=== PATIENT | male | born 1950 | race Caucasian/White ===

== ENCOUNTER 2017-08-07 04:26 | Inpatient (IN) | payer MEDICARE, BC ==
[2017-08-07] VITALS (7 sets, daily range): BP systolic 125–157; BP diastolic 74–94
[~2017-08-07] VITALS: Ht 182.9 cm; Wt 99.6 kg
--- NOTE | ~2017-08-07 | PROC ---
[facility] [address] [place] [address] PROCEDURE REPORT Name: ASYA RUBALCAVA Room: [address] IN M.R.#: [id number] Admission: 08/07/17 Attend Phys: Humphrey Calvert Discharge: 08/13/17 Date of : 46 Report #: [id number] THIS REPORT FOR: //name// For GI report, please see the Provation report in Perceptive 7 content. By: 0644Medical Records Staff KAMINI /JAMES
[2017-08-07 05:22] LABS: HEMATOCRIT 43.8 % (42.0-52.0); HEMOGLOBIN 14.7 gm/dL (14.0-18.0); MCHC 33.7 g/dL (28.0-37.0); MCV 98.1 fL (80.0-100.0); MPV 8.7 fl. (7.2-11.1); NUCLEATED RBCS 0 /100WBC; PLATELET COUNT* 130 thou/uL (150-400); RBC 4.46 mil/uL (4.50-6.00); RDW-CV 13.1 % (10.5-14.5); WBC 7.5 thou/uL (4.0-11.0)
[2017-08-07 05:26] LABS: URINE BILIRUBIN NEGATIVE (Negative); URINE BLOOD NEGATIVE (Negative); URINE CLARITY CLEAR; URINE COLOR YELLOW; URINE GLUCOSE-RANDOM NEGATIVE (Negative); URINE KETONES NEGATIVE (Negative); URINE LEUKOCYTES-REFLEX NEGATIVE (Negative); URINE NITRITE-REFLEX NEGATIVE (Negative); URINE PROTEIN TRACE (Negative); URINE UROBILINOGEN 0.2 E.U./dl (0.2-1.0)
[2017-08-07 05:52] LABS: CREATININE 1.6 mg/dL (0.6-1.3); POTASSIUM 4.3 mmol/L (3.5-5.1)
[2017-08-07 05:57] LABS: ALBUMIN 3.9 g/dL (3.4-5.0); TOTAL BILIRUBIN 0.9 mg/dL (<0.1-1.0); TOTAL PROTEIN 6.8 g/dL (6.4-8.2)
[2017-08-07 06:17] LABS: ABSOLUTE LYMPHOCYTES 1.1 thou/uL (0.8-5.3); ABSOLUTE MONOCYTES 0.2 thou/uL (0.0-1.2); ABSOLUTE NEUTROPHILS 6.2 thou/uL (1.6-8.1); PLATELET ESTIMATE ADEQUATE
[2017-08-07] MEDS ORDERED: DIFLUCAN200 MG PO (09:46)
[2017-08-07] MEDS ORDERED: KETOCONAZOLE15 GM TOP (09:47)
[2017-08-07] MEDS ORDERED: MAXITROL EYE DRO5 ML OPHTHALMIC (09:49)
--- NOTE | 2017-08-07 11:53 | NUR ---
PT ADMITTED TO UNIT AROUND 0900 PT IS ALERT AND ORIENTED X 4 PT IS UP AD EDUARDA PT IS NOT A FALL RISK, PT C/O PAIN IN ABDOMEN AND NAUSEA STARTED FLUIDS AND GAVE ZOFRAN PAGED PHYSICIAN REGARDING PAIN MEDS AND FOR POSSIBLE DIET PT IS NPO FOR CARDIOLOGY AND NAUSEA PT WOULD LIKE TO EAT CRACKERS TO HAVE SOMETHING ON STOMACH PER PT CARDIOLOGY SAW PT AND IS RECOMMENDING GI CONSULT AND TO FOLLOW UP OUTPATIENT, PT IS AFIB ON THE MONITOR, WILL CONTINUE TO MONITOR
--- NOTE | 2017-08-07 12:26 | EKG ---
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 08/07/17 1226 9 9 Aryan Mederos MD, [facility] /EPI
--- NOTE | 2017-08-07 16:13 | NUR ---
CM SPOKE TO THE PATIENT TO DISCUSS HOME SITUATION, DISCHARGE PLANNING, AND TO INFORM OF THE ROLE OF CM. PATIENT ALERT, ORIENTED, AND INDEPENDENT WITH ADL'S. PATIENT ACTIVE AND INDEPENDENT. PATIENT RESIDES AT HOME ALONE. PATIENT OWNS 0 DME. PATIENT HAS NO HX OF HH OR SNF, AND PLANS TO RETURN HOME AT D/C. CM WILL REMAIN AVAILABLE TO ASSIST AND FOLLOW NEEDED.
[2017-08-08] VITALS: BP 118/79
--- NOTE | 2017-08-08 03:51 | NUR ---
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 PT IS ON RA SATTING MID TO HIGH 90'S. PT C/O SOME PAIN THIS SHIFT WELL A SLEEP AID. PRN MEDICATIONS GIVEN PER JUL. PT IS UP AD EDUARDA IN HIS ROOM AND APPEARS TO BE STABLE ON HIS FEET. PT SLEPT ON AND OFF THROUGHOUT THE SHIFT. BED IN LOW POSITION, CALL LIGHT IN REACH. HOUELY ROUNDING COMPLETED FOR PT SAFETY.
[2017-08-08 04:00] VITALS: BP 126/80
[2017-08-08 05:12] LABS: ABSOLUTE LYMPHOCYTES 0.5 thou/uL (0.8-5.3); ABSOLUTE MONOCYTES 0.3 thou/uL (0.0-1.2); ABSOLUTE NEUTROPHILS 6.1 thou/uL (1.6-8.1); BASOPHILS 0.2 %; EOSINOPHILS 0.2 %; HEMOGLOBIN 13.2 gm/dL (14.0-18.0); LYMPHOCYTES 7.6 %; MCH 33.2 pg (26.0-34.0); MCHC 33.7 g/dL (28.0-37.0); MCV 98.3 fL (80.0-100.0); MONOCYTES 4.8 %; MPV 9.2 fl. (7.2-11.1); NUCLEATED RBCS 0 /100WBC; PLATELET COUNT* 103 thou/uL (150-400); POLYS 87.2 %; RBC 3.97 mil/uL (4.50-6.00); RDW-CV 13.3 % (10.5-14.5)
[2017-08-08 05:35] LABS: ALBUMIN 3.2 g/dL (3.4-5.0); CALCIUM 8.2 mg/dL (8.5-10.1); CREATININE 1.8 mg/dL (0.6-1.3); MAGNESIUM 1.8 mg/dL (1.8-2.4); POTASSIUM 4.5 mmol/L (3.5-5.1); TOTAL PROTEIN 6.1 g/dL (6.4-8.2)
[2017-08-08 07:40] VITALS: BP 141/88
--- NOTE | 2017-08-08 08:31 | NUR ---
RECIEVED REPORT FROM ROHINI AND ASSUMED CARE OF PT @ 1906.PT IS A/O X4,VSS,LUNG SOUNDS ARE CLEAR WITH O2 SAT @ 96% ON ROOM AIR.TRACING AFIB ON MONITOR.PT STATES BM ON 08/05/17 AND WAS LOOSE.ABDOMEN SOFT WITH ACTIVE BOWEL SOUNDS. IV RIGHT AC WITH NS RUNNING AT 75ML/HR.PT IS CALM AND COOPERATIVE WITH C/O PAIN AT 4/10-MEDICATIONS GIVEN.PT IS UP AD EDUARDA IN THE ROOM WITH BRP.URINE OBSERVED IN URINAL LOOKED DARK,THICK,AND BLOODY. NEW URINAL PROVIDED TO OBTAIN URINE SAMPLE.WILL CONTINUE TO MONITOR.CALL LIGHT WITHIN REACH.
[2017-08-08 10:10] LABS: ICTOTEST (BILI CONFIRMATORY) Negative (Negative); URINE BILIRUBIN 1+ (Negative); URINE BLOOD 3+ (Negative); URINE CLARITY CLEAR; URINE COLOR BROWN; URINE GLUCOSE-RANDOM NEGATIVE (Negative); URINE KETONES NEGATIVE (Negative); URINE LEUKOCYTES-REFLEX NEGATIVE (Negative); URINE NITRITE-REFLEX NEGATIVE (Negative); URINE PROTEIN 2+ (Negative); URINE SPECIFIC GRAVITY >= 1.030 (1.005-1.030); URINE UROBILINOGEN 0.2 E.U./dl (0.2-1.0)
[2017-08-08 10:19] LABS: CASTS None Seen /LPF (None Seen); MUCUS >6 Heavy strn/LPF (None Seen); SQUAMOUS NONE SEEN /LPF (0-3); URINE RBC 0-2 Rare /HPF (0-2); URINE WBC-REFLEX 6-15 Few /HPF (0-5)
[2017-08-08 10:20] LABS: AMORPHOUS URATES Few /LPF (None Seen); BACTERIA-REFLEX 1-9 Few /HPF (None Seen); WBC CLUMPS Few (None Seen)
[2017-08-08 11:43] VITALS: BP 132/80
--- NOTE | 2017-08-08 13:01 | EKG ---
[place] [address] ELECTROCARDIOGRAM REPORT Name: ASYA RUBALCAVA Room: [address] ADM IN M.R.#: [id number] Admission: 08/07/17 Attend Phys: Humphrey Calvert Discharge: Date of : 46 Report #: [id number] THIS REPORT FOR: //name// [facility] Test Date: 2017-08-08 Test Time: 08:34:14 Pat Name: ASYA RUBALCAVA Department: Room: [facility] Gender: M Supervisor Baking: MELVIN : 1950 Requested By: Adriel Weiss Order Number: [id number] Reading MD: Aryan Mederos Measurements Intervals [place] Rate: 61 P: AL: QRS: 59 QRSD: 115 T: 22 QT: 439 QTc: 443 Interpretive Statements Atrial fibrillation Nonspecific intraventricular conduction delay Compared to ECG 08/07/2017 06:40:19 Intraventricular conduction delay now present Early repolarization no longer present Electronically Signed On 08-08-2017 13:01:35 CDT by Aryan Mederos [email or web address] <ELECTRONICALLY SIGNED> By: Aryan Mederos MD, [facility] 08/08/17 1301 0834 0834 Aryan Mederos MD, [facility] /EPI
[2017-08-08 15:35] VITALS: BP 147/86
--- NOTE | 2017-08-08 17:30 | NUR ---
VSS,CARDIAC MONITORING IN PLACE WITH NO CHANGES.PT REMAINS ON ROOM AIR.PT'S PAIN WELL MANAGED WITH MEDICATION.IVF INFUSING @ 75ML/HR PER ORDERS.PT MAG REPLACED AND WILL REDRAW LABS IN AM.PT NPO AT MIDNIGHT FOR ABDOMINAL ULTRASOUND IN AM.PT INFORMED OF PLAN OF CARE AND COMMUNICATES UNDERSTANDING. PT UP AD EDUARDA IN ROOM WITH BRP.HOURLY ROUNDING COMPLETED FOR PT SAFETY.CALL LIGHT WITHIN REACH.WILL CONTINUE TO MONITOR FOR DURATION OF SHIFT.
[2017-08-08 20:00] VITALS: BP 125/81
[2017-08-09 00:07] VITALS: BP 120/81
--- NOTE | 2017-08-09 03:18 | NUR ---
ASSUMED CARE OF PT AT 1930, NURSING ASSESSMENT COMPLETED AT START OF SHIFT. 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 PT C/O ABDOMINAL PAIN THIS SHIFT, PRN PAIN MEDICATION ADMINISTERED. IVF INFUSING, HOURLY ROUNDING COMPLETED, PT NPO AFTER MIDNIGHT FOR ABD ULTRASOUND.
[2017-08-09 03:52] VITALS: BP 133/81
[2017-08-09 05:12] LABS: ABSOLUTE LYMPHOCYTES 0.5 thou/uL (0.8-5.3); ABSOLUTE MONOCYTES 0.5 thou/uL (0.0-1.2); ABSOLUTE NEUTROPHILS 8.1 thou/uL (1.6-8.1); BASOPHILS 0.1 %; HEMOGLOBIN 12.7 gm/dL (14.0-18.0); LYMPHOCYTES 5.9 %; MCH 33.5 pg (26.0-34.0); MCHC 34.3 g/dL (28.0-37.0); MCV 97.6 fL (80.0-100.0); MONOCYTES 5.1 %; MPV 9.7 fl. (7.2-11.1); NUCLEATED RBCS 0 /100WBC; PLATELET COUNT* 90 thou/uL (150-400); POLYS 88.9 %; RBC 3.79 mil/uL (4.50-6.00); RDW-CV 12.9 % (10.5-14.5); WBC 9.1 thou/uL (4.0-11.0)
[2017-08-09 05:22] LABS: CHOLESTEROL 140 mg/dL (<200); HDL CHOLESTEROL 48 mg/dL (>40); LDL CHOLESTEROL 81 mg/dL (<100); TC:HDL 2.9 Ratio (Not establshd); TRIGLYCERIDE 59 mg/dL (<150); VLDL 12 mg/dL (<40)
[2017-08-09 05:41] LABS: SERUM ASSESSMENT CLEAR
[2017-08-09 06:35] LABS: ALBUMIN 2.9 g/dL (3.4-5.0); CALCIUM 8.2 mg/dL (8.5-10.1); CREATININE 1.8 mg/dL (0.6-1.3); DIRECT BILIRUBIN 0.3 mg/dL (<0.1-0.3); POTASSIUM 4.4 mmol/L (3.5-5.1); TOTAL BILIRUBIN 1.5 mg/dL (<0.1-1.0)
[2017-08-09 08:00] VITALS: BP 141/91
--- NOTE | 2017-08-09 11:03 | NUR ---
ASSUMED RESPONSIBILITY OF PT THIS AM PT IS ALERT AND ORIENTED HRIR AFIB ON THE MONITOR WHICH IS NEW FOR PATIENT CARDIOLOGY TO FOLLOW ECHO DONE TODAY U/S OF ABD COMPLETE NO DIARRHEA SINCE HERE DARK BROWN URINE LEFT FLANK PAIN NORCO GIVEN AND ZOFRAN FOR NAUSEA 'NO APPETITE REALLY' COOL DRY SKIN 99.3 LOW GRADE TEMP LSCTA RESP EVEN AND NONLABORED SBA TO BR BUT USES URINAL CALL LIGHT IN REACH
[2017-08-09 12:00] VITALS: BP 120/86
--- NOTE | 2017-08-09 14:26 | 2DMMODE ---
[place] [address] 2 D/M-MODE ECHOCARDIOGRAM Name: ASYA RUBALCAVA Room: 209-P ADM IN [facility]#: [id number] Admission: 08/07/17 Attend Phys: Adriel Weiss Discharge: Date of : 46 Date of Service: 08/09/17 1426 Report #: [id number] THIS REPORT FOR: //name// APPROVED REPORT Study performed: 08/09/2017 10:05:05 EXAM: Comprehensive 2D, Doppler, and color-flow Echocardiogram Patient Location: In-Patient Room #: 209 Status: routine BSA: 2.24 HR: 79 bpm BP: 133/81 mmHg Rhythm: Atrial Fibrillation Other Information Study Quality: Good Indications Atrial Fibrillation 2D Dimensions LVEF(%): 49.40 (>50%) IVSd: 12.02 (7-11mm) LVOT Diam: 21.77 (18-24mm) LVDd: 39.16 mm PWd: 11.21 (7-11mm) Ascending Ao: 42.50 (22-36mm) LVDs: 29.53 (25-40mm) Aortic Root: 39.22 mm Wolf's LVEF: 49.40 % Volumes Left Atrial Volume (Systole) LA ESV Index: 39.00 mL/m2 Aortic Valve AoV Peak Stephen.: 0.91 m/s AO Peak Gr.: 3.30 mmHg LVOT Max P.35 mmHg AO Mean Gr.: 1.83 mmHg LVOT Mean P.78 mmHg LVOT Max V: 0.58 m/s AO V2 VTI: 16.23 cm LVOT Mean V: 0.41 m/s HARJIT (VTI): 2.41 cm2 LVOT V1 VTI: 10.51 cm Mitral Valve MV Decel. Time: 173.61 [place] [address] 2 D/M-MODE ECHOCARDIOGRAM Name: ASYA RUBALCAVA Room: [address] IN ..#: [id number] Admission: 08/07/17 Attend Phys: Adriel Weiss Discharge: Date of : 46 Date of Service: 08/09/17 1426 Report #: [id number] MV PHT: 50.35 ms MVA (PHT): 4.37 cm2 TDI Medial E' Stephen.: 0.15 m/s Lateral E' Stephen.: 0.15 m/s Pulmonary Valve PV Peak Stephen.: 0.75 m/s PV Peak Gr.: 2.25 mmHg Tricuspid Valve TR Peak Gr.: 25.11 mmHg RVSP: 30.00 mmHg Left Ventricle The left ventricle is normal size. There is normal LV segmental wall motion. Mild concentric left ventricular hypertrophy. Left ventricular systolic function is normal. The left ventricular ejection fraction is within the normal range. LVEF is 50-55%. This study is not technically sufficient to allow evaluation of the LV diastolic function due to atrial fibrillation. Right Ventricle Right ventricle is mildly dilated. The right ventricular systolic function is normal. Atria Left atrium is mildly dilated. Right atrium is mildly dilated. Aortic Valve Moderate aortic valve sclerosis. Trace aortic regurgitation. Mild aortic stenosis. Mitral Valve The mitral valve is normal in structure. Moderate mitral regurgitation. No evidence of mitral valve stenosis. Tricuspid Valve The tricuspid valve is normal in structure. Mild tricuspid regurgitation. The RVSP is 40-45 mmHg. Pulmonic Valve The pulmonary valve is normal in structure. Mild pulmonic regurgitation. [employer] [place] [address] 2 D/M-MODE ECHOCARDIOGRAM Name: ASYA RUBALCAVA Room: [address] IN ..#: [id number] Admission: 08/07/17 Attend Phys: Adriel Weiss Discharge: Date of : 46 Date of Service: 08/09/17 1426 Report #: [id number] Aortic root is mildly dilated. IVC is dilated and collapses <50% with inspiration. Pericardium There is no pericardial effusion. <Conclusion> Mild concentric left ventricular hypertrophy. LVEF is 50-55%. Left atrium is mildly dilated. Mild aortic stenosis. Moderate mitral regurgitation. Mild tricuspid regurgitation. The RVSP is 40-45 mmHg. <ELECTRONICALLY SIGNED> By: Ahmet Hicks MD, [facility] 08/09/17 1426 1426 1426 Ahmet Hicks MD, [facility] /INF
[2017-08-09 15:35] VITALS: BP 100/67
--- NOTE | 2017-08-09 19:03 | NUR ---
UA TO BE DONE PT STILL WITH UPSET STOMACH AND SOME PAIN UP SBA WITH CARES SLIGHTLY UNSTEADY BLADDER TO BE SCANNED TO SEE IF ANY ISSUES WITH THAT
[2017-08-09 20:00] VITALS: BP 128/88
--- NOTE | 2017-08-09 20:04 | NUR ---
ASSUMED PT CARE AT 19:15. REPORT RECEIVED FROM NURSE.PATIENT IS ALERT, AWAKE, ORIENTED X 4. NO COMPLAINT OF PAIN AT THIS MOMENT. VITALS SIGNS TAKEN. WITHIN NORMAL LIMIT. SATURRATION IS 94 ON RA. ASSESSMENT TAKEN. A FIB ON THE MONITOR. HEART RATE IS 73. IV FLUID INFUSING IN R. FOREARM LINE. PLAN IS TO PREVENT FALL, VOMITING, PAIN. PT WANT TO TAKE SHOWER PRIOR TO GO TO BED. WILL CONTINUE TO MONITOR.
[2017-08-10] VITALS: BP 126/84
[2017-08-10 04:00] VITALS: BP 138/95
[2017-08-10 05:17] LABS: HEMATOCRIT 34.6 % (42.0-52.0); MCH 33.6 pg (26.0-34.0); MCHC 34.7 g/dL (28.0-37.0); MCV 96.9 fL (80.0-100.0); MPV 10.1 fl. (7.2-11.1); RBC 3.58 mil/uL (4.50-6.00); RDW-CV 12.9 % (10.5-14.5)
[2017-08-10 05:24] LABS: ALBUMIN 2.7 g/dL (3.4-5.0); CALCIUM 8.1 mg/dL (8.5-10.1); CREATININE 1.7 mg/dL (0.6-1.3); MAGNESIUM 1.8 mg/dL (1.8-2.4); PHOSPHORUS* 2.5 mg/dL (2.5-4.9); POTASSIUM 4.7 mmol/L (3.5-5.1); TOTAL BILIRUBIN 1.2 mg/dL (<0.1-1.0); TOTAL PROTEIN 5.4 g/dL (6.4-8.2)
--- NOTE | 2017-08-10 07:20 | NUR ---
CHANGE OF SHIFT, BEDSIDE REPORT GIVEN ASSUMED PATIENT CARE PATIENT SEEN AT BEDSIDE IN BED AND RESTING, NO REQUESTS
[2017-08-10 07:45] VITALS: BP 153/94
[2017-08-10 11:36] VITALS: BP 145/93
[2017-08-10 16:00] VITALS: BP 128/93
--- NOTE | 2017-08-10 19:38 | NUR ---
PATIENT IN BED AND WATCHING TV A AND O X 4 AFIB RATES 60S-80S RA O2 SAT MID 90S CL DIET TODAY PER GI LAST BM T-2 GOO UO UP WITH STANDBY IV 20 GA R AC IVF NS AT 75CC/HR C/O ABD PAIN TODAY MSO4 IVP GIVEN AND WITH RELIEF COLON TOMORROW, MIRALAX PREP STARTED
[2017-08-10 20:00] VITALS: BP 148/98
--- NOTE | 2017-08-10 23:45 | NUR ---
ASSUMED PT CARE AT 19:15 PT IS ALERT AWAKE ORIENTED X 4 , NO COMPLAIN ABOUT PAIN AT THIS TIME. VITAL SIGNS TAKEN. A FIB ON THE MONITOR. PT IS NPO AND ON MIRALAX PREP. EDUCATION PROVIDED ABOUT THE PREP FOR GI STUDY TOMORROW. STATES UNDERSTANDING. HAD AN EPISODE OF SMALL AMOUNT OF EMESIS AROUD 22:30 RELATED TO THE MIRALAX PREP. ZOFRAN WAS ADMINISTERED. ASSESSEMENT WAS PERFORMED REFER TO CHART. PT IS RESTING IN BE AT THIS TIME
[2017-08-11] VITALS (7 sets, daily range): BP systolic 126–159; BP diastolic 84–98
[2017-08-11 04:57] LABS: HEMATOCRIT 33.7 % (42.0-52.0); HEMOGLOBIN 11.5 gm/dL (14.0-18.0); MCH 33.2 pg (26.0-34.0); MCHC 34.3 g/dL (28.0-37.0); MCV 96.9 fL (80.0-100.0); MPV 9.5 fl. (7.2-11.1); RBC 3.47 mil/uL (4.50-6.00); RDW-CV 13.1 % (10.5-14.5); WBC 5.4 thou/uL (4.0-11.0)
[2017-08-11 05:18] LABS: ALBUMIN 2.5 g/dL (3.4-5.0); CALCIUM 8.1 mg/dL (8.5-10.1); CREATININE 1.6 mg/dL (0.6-1.3); POTASSIUM 4.1 mmol/L (3.5-5.1); TOTAL BILIRUBIN 0.7 mg/dL (<0.1-1.0); TOTAL PROTEIN 5.7 g/dL (6.4-8.2)
--- NOTE | 2017-08-11 07:25 | NUR ---
CHANGE OF SHIFT, BEDSIDE REPORT GIVEN PATIENT SEEN AT BEDSIDE HAVING FREQUENT LIQ STOOLS FROM COLON PREP LAST NIGHT PATIENT INSTRUCTED ON NPO STATUS
[2017-08-11 18:08] LABS: ANA INTERPRETATION Negative (())
--- NOTE | 2017-08-12 03:07 | NUR ---
ASSUMED PT CARE AT 19:15 RECEIVED REPORT FROM NURSE. PT IS ALERT AWAKE ORIENTED X 4 LAYING IN BED WITH NO COMPLAIN OF PAIN. VITALS SIGNS WITHIN NORMAL LIMIT.A FIB ON MONITOR RATE CONTROL BETWEEN 70 S ANF 80 S ASSESSEMENT PERFORMED REFER TO CHART. MEDICATION RECEIVED. NPO AFTER MIDNIGHT FOR GET TOMORROW. IV SALINE RUNNING IN R. FOREARM.SAFETY PROVIDED. WILL CONTINUE TO MONITOR
[2017-08-12 04:00] VITALS: BP 143/92
[2017-08-12 08:05] VITALS: BP 156/89
[2017-08-12 12:00] VITALS: BP 158/91
--- NOTE | 2017-08-12 16:09 | NUR ---
Pt to dc to home today pending GI clearance.
[2017-08-12 16:47] VITALS: BP 138/61
--- NOTE | 2017-08-12 18:58 | NUR ---
ASSUMED CARE OF PT AT 0730. PT CONTINUES TO BE A&O X4 CALM AND COOPERATIVE. PT HAS BEEN TRACING A FIB ON THE MONITOR. PT UP AD EDUARDA IN HIS ROOM AND VOIDING PER TOILET. PT HAS HAD C/O ABD PAIN THAT HAVE BEEN CONTROLLED WITH PRN PAIN MEDICATIONS. HOURLY ROUNDING COMPLETED FOR SAFTEY AND COMFORT, MEDICATIONS ADMINISTERED PER JUL. NURSING WILL CONTINUE TO MONITOR.
[2017-08-12 20:00] VITALS: BP 141/97
[2017-08-13] VITALS: BP 155/95
[2017-08-13 04:00] VITALS: BP 131/77
--- NOTE | 2017-08-13 04:28 | NUR ---
RECIEVED REPORT AND ASSUMED CARE OF PATIENT AT 1930. DIRECTOR GENERAL IN PLACE TRACING AFIB, RATE CONTROLLED. ASSESSMENT AND VITALS COMPLETED CHARTED, VSS. PATIENT STATES HE HAS SOME "DISCOMFORT IN ABDOMEN, BUT NO PAIN." PATIENT HAS NOT HAD ANY NAUSEA/VOMITING THIS SHIFT. PATIENT HAS RESTED COMFORTABLY WITH NO REQUESTS OR CONCERNS. HOURLY ROUNDING OBSERVED. CALL LIGHT WITHIN REACH
[2017-08-13 05:48] LABS: HEMATOCRIT 36.8 % (42.0-52.0); HEMOGLOBIN 12.7 gm/dL (14.0-18.0); MCH 32.9 pg (26.0-34.0); MCHC 34.4 g/dL (28.0-37.0); MCV 95.6 fL (80.0-100.0); MPV 8.9 fl. (7.2-11.1); RBC 3.85 mil/uL (4.50-6.00); RDW-CV 13.2 % (10.5-14.5); WBC 4.8 thou/uL (4.0-11.0)
[2017-08-13 06:16] LABS: ALBUMIN 2.7 g/dL (3.4-5.0); CALCIUM 8.7 mg/dL (8.5-10.1); CREATININE 1.5 mg/dL (0.6-1.3); TOTAL BILIRUBIN 0.8 mg/dL (<0.1-1.0); TOTAL PROTEIN 6.3 g/dL (6.4-8.2)
[2017-08-13 12:08] VITALS: BP 151/88
--- NOTE | 2017-08-13 12:26 | NUR ---
F/U WITH PT, HE PLANS TO GO HOME TODAY AND DENIES NEEDS
[2017-08-13] MEDS ORDERED: CARAFATE 1 GM TA1 G1 PO (12:55)
[2017-08-13] MEDS ORDERED: PROTONIX40 M1 PO (12:57)
[2017-08-13] MEDS ORDERED: REGLAN 5 MG TAB5 MG PO (13:00)
[2017-08-13] MEDS ORDERED: XARELTO15 MG PO (13:10)
[2017-08-13] MEDS ORDERED: ONDANSETRON HCL4 M2 PO (13:13)
[2017-08-13 13:14] VITALS: BP 151/90
[2017-08-13 13:17] VITALS: BP 151/90
--- NOTE | 2017-08-13 13:18 | S ---
[address] [address] SURGICAL PATH RPT PROCEDURE Name: DONNIE VELÁZQUEZ Room: [address] IN M.R.#: [id number] Admission: 08/07/17 Date of : 46 Discharge: Report #: [id number] Path Case #: [id number] PATHOLOGY REPORT COLLECTION DATE: 08/11/2017 RECEIVED DATE: 08/12/2017 SUBMITTING PHYS: Dr. Ron Hawk OTHER PHYS: Dr. Adriel Weiss SPECIMEN(S) RECEIVED: A.Antral Biopsy for H. pylori B.Esophageal ulceration at 40 cm * * * * * * * * * * * * FINAL DIAGNOSIS: A. Antral biopsy for H. pylori: - Severe chronic and active antral gastritis with abundant Helicobacter pylori organisms, negative for granulomas and dysplasia. B. 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 (GRETA:mml; 08/13/2017) PATHOLOGIST: Gus Kingston M.D. REPORT ELECTRONICALLY SIGNED BY: Gus Kingston M.D. DATE/TIME: 08/13/2017 13:17 * * * * * * * * * * * * GROSS PATHOLOGY: A. The specimen is received in formalin, labeled "Donnie Velázquez and antral biopsy for H. pylori", is an irregular fragment of baig soft tissue 0.5 cm in greatest dimension, entirely submitted in A1. B. The specimen is received in formalin, labeled "Donnie Velzáquez and esophageal ulceration at 40 cm", are several oconnor-white soft tissues that aggregately measure 0.5 x 0.2 x 0.1 cm, entirely submitted in B1. (SWS; 08/12/2017) CLINICAL HISTORY: None provided INITIAL CPT CODE(S): A; 70040, 25194 B; [address] [place] [address] SURGICAL PATH RPT PROCEDURE Name: DONNIE VELÁZQUEZ Room: [address] IN [facility].#: [id number] Admission: 08/07/17 Date of : 46 Discharge: Report #: [id number] Path Case #: [id number] Professional services [place] [address] Technical services performed by [facility] at [address] [place] [address], [facility] [address], [place] [address]. [facility] [address] [place] [address] PHONE: [phone] DIRECTOR: Britton Gilmore M.D. * * * END OF REPORT * * *
--- NOTE | 2017-08-13 13:58 | NUR ---
PT DISCHARGED HOME WITH HOME HEALTH SERVICES. PT VERBALIZED UNDERSTANDING OF DC INSTRUCTIONS THAT INCLUDED MEDICATION TEACHING AND FOLLOW UP CARE. IV AND WAFFLE MACHINE OPERATOR REMOVED PRIOR TO DISCHARGE. SECURITY CONTACTED AND BROUGHT PT PERSONAL ITEMS THAT WERE STORED. PT TOOK ALL PERSONAL BELONGINGS AND ALL PRESCRIPTIONS AT TIME OF DISCHARGE. PT VSS ON ROOM AIR AND PT DENIES ANY C/O PAIN OR DISTRESS, SKIN W/D/I.
--- NOTE | 2017-08-13 15:43 | CON ---
[address] [address] CONSULTATION Name: ASYA RUBALCAVA Room: [address] IN M.R.#: [id number] Admission: 08/07/17 Attend Phys: Humphrey Calvert Discharge: 08/13/17 Date of : 46 Report #: [id number] THIS REPORT FOR: //name// CC: [facility] physician/PCP Adriel Weiss DATE OF SERVICE: 08/07/2017 REASON FOR CONSULTATION: Atrial fibrillation, new onset. HISTORY OF PRESENT ILLNESS: The patient is a 67-year-old man presented with flank pain. We set up the telemetry and he was noted to be in atrial fibrillation with slow ventricular response. Clinically, he is asymptomatic, palpitations, heart racing, skipping, dizziness or chest pain. He denies orthopnea or PND. He has no documented history of heart disease. Apparently at [facility] about 5-10 years ago, he had an MPI, which was negative for ischemia. He has no neuro symptoms of slurred speech, numbness or weakness. He has no documented history of stroke or TIA. PAST MEDICAL HISTORY: He is not known to be a diabetic or have thyroid disease. He presented with an elevated blood pressure, but does not take any medications for this. He has no documented history of peripheral vascular carotid stenosis or carotid vascular disease. SOCIAL HISTORY: He is fairly active. He plays handball pretty regularly and lately has been a little bit more fatigued, but otherwise has been asymptomatic. He is single. Does not drink or smoke. FAMILY HISTORY: Unremarkable for the presence of cardiac dysrhythmia, sudden cardiac or congestive heart failure. PAST SURGICAL HISTORY: No recent surgeries. REVIEW OF SYSTEMS: CENTRAL NERVOUS SYSTEM: No seizures or paralysis. GENERAL: No weight loss or fevers. RESPIRATORY: No cough or sputum production. CARDIOVASCULAR: No palpitations, no chest discomfort, no orthopnea, no PND, no edema. ENDOCRINE: [place] [address] CONSULTATION Name: ASYA RUBALCAVA Room: [address]#: [id number] Admission: 08/07/17 Attend Phys: Humphrey Calvert Discharge: 08/13/17 Date of : 46 Report #: [id number] GASTROINTESTINAL: No . GENITOURINARY: No dysuria or hematuria. He does have flank pain. HEMATOLOGIC: No anemia. ALLERGIES: No seasonal, medical, aspirin or contrast allergies. PSYCHIATRIC: No depression or anxiety. MUSCULOSKELETAL: Positive arthritis. SKIN: No rash or chronic skin conditions. EYES: No loss of vision. No glasses. EARS, NOSE, THROAT AND MOUTH: No decreased hearing. No bleeding from nose or dentures. PHYSICAL EXAMINATION: VITAL SIGNS: Blood pressure this morning is stable at 150/90, heart rate 62 in atrial fibrillation. O2 sat is 98% on room air. GENERAL: A healthy-appearing, middle-aged male. He is alert, no apparent distress. HEENT: Eyes, EOMs intact. No facial asymmetry. NECK: Supple. No jugular venous distention. CARDIOVASCULAR: Regular. I cannot hear a murmur. LUNGS: Clear to auscultation. ABDOMEN: Soft, nontender. Left flank tenderness to palpation. NEUROLOGIC: There are no focal deficits. EXTREMITIES: There is no peripheral edema. Electrocardiogram demonstrates atrial fibrillation, slow ventricular response, normal, R-wave progression. There is a Q-wave in lead III only. There is a subtle ST-T wave abnormality in the lateral precordial leads. LABORATORY DATA: Hemoglobin is 14.7, white blood cell count 7.5. Sodium is 135, potassium is 4.3, chloride 103, CO2 is 26, BUN is 18, creatinine 1.6, AST is 39, ALT is 39. Troponin I is 0.06. Imaging of his abdomen demonstrates a renal cyst in the 6 cm range, left-sided. IMPRESSION AND PLAN: 1. Atrial fibrillation. This is likely chronic, persistent, the patient is asymptomatic with a controlled ventricular response. He does not present with congestive heart failure or significant functional limitation, so I would continue with a rate control strategy of which he probably has some underlying sick sinus syndrome as he comes with a controlled ventricular response. He should be anticoagulated. I do not know what his LV function is. However, he likely will need a GI/ workup given his significant left flank pain and a CT abnormality, renal cyst. 2. Elevated blood pressure. Would continue to treat this as needed, but I suspect this is secondary to discomfort. 3. Abnormal ECG. He should have an outpatient echocardiogram and stress test. [address] [address] CONSULTATION Name: ASYA RUBALCAVA Room: [address] IN ..#: [id number] Admission: 08/07/17 Attend Phys: Humphrey Calvert Discharge: 08/13/17 Date of : 46 Report #: [id number] No family physician. <ELECTRONICALLY SIGNED> By: Aryan Mederos MD, FACC 08/13/17 1543 1116 [id number] Mederos MD, FACC /nt
--- NOTE | 2017-08-15 11:44 | CON ---
[address] [address] CONSULTATION Name: ASYA RUBALCAVA Room: [address] IN M.R.#: [id number] Admission: 08/07/17 Attend Phys: Humphrey Calvert Discharge: 08/13/17 Date of : 46 Report #: [id number] THIS REPORT FOR: //name// CC: [facility] physician/PCP Adriel Weiss NEPHROLOGY CONSULTATION CONSULTING PHYSICIAN: Adriel Weiss DO REASON FOR CONSULTATION: Acute kidney injury. HISTORY OF PRESENT ILLNESS: A 67-year-old gentleman who was admitted with nausea, vomiting and symptoms suggestive of gastroenteritis. He has no known history of underlying kidney disease. He was admitted with a creatinine of 1.6. He takes some Aleve occasionally, but only once every 2 weeks or so and had not been taking any recently. He was on an antibiotic having finished that just a few days ago for an ear infection. He does not recall the name of it, but he was on it once a day and was to complete a 7-day course. He finished about 5 days' worth of the antibiotic. He was started on IV fluids. His stomach is still feeling somewhat queasy and his creatinine did bump up to 1.8 today prompting a renal consult. He otherwise has no complaints and appears to be comfortable. REVIEW OF SYSTEMS: Constitutional, psych, heme, eyes, ENT, respiratory, cardiac, GI, , endocrine, all negative except as documented above. PAST MEDICAL HISTORY: None. SOCIAL HISTORY: No tobacco. FAMILY HISTORY: No known kidney disease. PHYSICAL EXAMINATION: VITAL SIGNS: Blood pressure 100/67, pulse 82, temperature 37.0, respirations 18. GENERAL: No acute distress. EYES: Extraocular movements intact. EARS: Externally normal. CARDIOVASCULAR: Regular rate. LUNGS: No crackles. ABDOMEN: Soft. LYMPHATICS: No substantial peripheral pitting edema. PSYCHIATRIC: Awake, alert. LABORATORY DATA: White cell count 9.1, hemoglobin 12.7, platelets 90. Sodium 135, potassium 4.4, chloride 102, bicarbonate 24, BUN 28, creatinine 1.8, [place] [address] CONSULTATION Name: ASYA RUBALCAVA Room: [address]#: [id number] Admission: 08/07/17 Attend Phys: Humphrey Calvert Discharge: 08/13/17 Date of : 46 Report #: [id number] glucose 101, calcium 8.2, albumin 2.9. ASSESSMENT: 1. Acute kidney injury with admission creatinine of 1.6. In 2014, creatinine was 1.1. This is in the setting of nausea and vomiting. UA noted. CT scan showed kidneys were okay. 2. Hypoalbuminemia with an albumin of 2.9. 3. Mild aortic stenosis with an ejection fraction of 50%-55% with moderate mitral regurgitation and pulmonary pressure of 40-45. 4. New onset atrial fibrillation. Cardiology is following. 5. Blood on UA. No RBCs. 6. Proteinuria on urine dip. 7. Left renal cyst 6.5 cm in size. 8. Thrombocytopenia with platelets slowly trending down. PLAN: 1. Continue normal saline at 75 mL an hour. We will check an DIANNA and an ANCA as well as the urine protein and creatinine ratio. 2. Check bladder scan. 3. Defer management of thrombocytopenia to primary service. We will check labs again in the a.m. and follow closely. Thank you for requesting my opinion in the care and management of this patient. <ELECTRONICALLY SIGNED> By: Irwin Quiles MD 08/15/17 1144 1603 [id number] Quiles MD /nt
--- NOTE | 2017-08-15 19:58 | PROC ---
[address] [address] PROCEDURE REPORT Name: ASYA RUBALCAVA Room: [address] IN M.R.#: [id number] Admission: 08/07/17 Attend Phys: Humphrey Calvert Discharge: 08/13/17 Date of : 46 Report #: [id number] THIS REPORT FOR: //name// CC: [facility] physician/PCP Aryan Magana DO DATE OF SERVICE: 08/11/2017 REFERRING PHYSICIAN: Adriel Weiss DO PROCEDURE PERFORMED: Esophagogastroduodenoscopy with biopsy; colonoscopy to the cecum. SEDATION USED: Monitored anesthesia care with 400 propofol. 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 pylori. INDICATIONS: The patient is a pleasant 67-year-old white male who was admitted to hospital on 08/08/2017 with complaints of abdominal pain associated with nausea and vomiting. He had not been able to eat much of anything. When he came to the emergency room, he was found to be in atrial fibrillation and acute renal failure. CT scans of the abdomen and pelvis were unremarkable. He has never had anything like this in the past and was seen in consultation by my partner, Dr. Mercedes, and because of problems with still persistent nausea and vomiting plus the need to be on anticoagulant for his new onset atrial fibrillation, he is here for endoscopic evaluation. In talking with the patient, he continues to have problems with nausea and vomiting, he cannot eat much of anything. He feels that he gets full quicker than normal. He denies any complaints of dysphagia or odynophagia, but cannot eat much. He has had some mild rectal bleeding, but that has been severe. He presents today for a colonoscopy as a preprocedure before beginning on anticoagulants, but because of his persistent nausea and vomiting, I recommended he undergo upper endoscopy as well. He presents today for the same. PHYSICAL EXAMINATION: VITAL SIGNS: Stable. CARDIOPULMONARY: Revealed a regular rate and rhythm. LUNGS: Clear. ABDOMEN: Soft and not tender. No rebound or guarding noted. DESCRIPTION OF PROCEDURE: After obtaining informed consent[place] [address] PROCEDURE REPORT Name: ASYA RUBALCAVA Room: [address] IN [facility].#: [id number] Admission: 08/07/17 Attend Phys: Humphrey Calvert Discharge: 08/13/17 Date of : 46 Report #: [id number] was adequately sedated, the Olympus video upper scope was advanced under direct vision into the esophagus, which revealed severe linear erosive esophagitis suspicious for either severe reflux or possibly viral esophagitis. 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 Biopsies taken from the same. Stomach was then insufflated in its entirety revealed 3 cm hiatal hernia. Biopsies were taken from the antrum to evaluate for H. pylori as the patient appeared to have multiple shallow erosions noted within the duodenal bulb and second portion of duodenum. There is no evidence for any ulceration. The scope was withdrawn, retroflexed, which revealed a hiatal hernia. Scope was withdrawn. The patient was repositioned for colonoscopy. Anal inspection and digital rectal exam revealed moderate external hemorrhoids. The [employer] video colonoscope was then advanced under direct vision to the level of the cecum, which was identified by the ileocecal valve and the appendiceal orifice. The cecum, ascending, transverse, descending and sigmoid colon were then circumferentially inspected in a well-prepped colon. I found no evidence for any colitis, polyps, tumors, cancers, diverticular changes, or any other abnormalities. The rectum appeared normal on forward and retroflex examination. Prior to pulling the scope, the ileocecal valve was traversed and the terminal ileum was evaluated and found to be normal. mild sigmoid diverticulosis without diverticulitis stricture. 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 These were not bleeding. The remainder of the colon to the level of cecum was normal. No polyps were noted. The scope was withdrawn. The patient was sent to recovery room in stable condition. IMPRESSION: 1. 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 2. A 3 cm hiatal hernia. 3. Mild to moderate erosive duodenitis -- Helicobacter pylori. 4. Mild external hemorrhoids. 5. Mild sigmoid diverticulosis. 6. 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 7. Otherwise, normal colonoscopy to the cecum. 8. Personal history of colon polyps. RECOMMENDATIONS: 1. We will begin on the patient Protonix 40 mg twice daily before breakfast and before dinner. 2. We will begin the patient on Carafate suspension 1 g q.i.d. [place] [address] PROCEDURE REPORT Name: ASYA RUBALCAVA Room: [address] [facility] IN M.R.#: [id number] Admission: 08/07/17 Attend Phys: Humphrey Calvert Discharge: 08/13/17 Date of : 46 Report #: [id number] 3. Because of his nausea and vomiting, begin the patient on scopolamine patch 1.5 g every 72 hours and schedule the patient for 4-hour gastric emptying scan to evaluate his nausea, vomiting or satiety and weight loss. 4. Diet will be as tolerated. 5. Further recommendation will be made after his emptying scan is performed. 6. With regards to beginning the patient on any form of anticoagulation, I would like to have him wait for at least 7-10 days before beginning on any anticoagulant due to the severity of esophagitis. 7. We will continue to see the patient while he is in the hospital. 8. Repeat colonoscopy because of personal history of colon polyps to be done in 5 years. 9. When he gets out of the hospital, we will have him follow up with us to see how things are going to ensure that everything is going in right direction and will likely need a repeat upper endoscopy in about 3 months to make sure everything is healed. <ELECTRONICALLY SIGNED> By: Ron Hawk DO 08/15/171957 1155 1913Gdes Hawk DO /nt
--- NOTE | 2017-08-23 15:01 | CON ---
[address] [address] CONSULTATION Name: RUBALCAVA,SAYA GAL Room: [address] IN M.R.#: [id number] Admission: 08/07/17 Attend Phys: Humphrey Calvert Discharge: 08/13/17 Date of : 46 Report #: [id number] THIS REPORT FOR: //name// CC: [facility] physician/PCP Adriel Weiss DATE OF SERVICE: 08/08/2017 REQUESTING PHYSICIAN: Dr. Adriel Weiss. HISTORY OF PRESENT ILLNESS: This is a 67-year-old male who presented to hospital after eating ice cream and whipped cream. The patient reports that 20 minutes after eating this, he started feeling queasy and had nausea and vomiting, which persisted. He reports that he was feeling so bad with abdominal pain, which he presented to ER. During his ER visit, the patient found to have AFib and acute renal failure. CAT scan was obtained, which showed no acute finding. The patient also had elevated liver enzymes and evidence of urinary tract infection. PAST MEDICAL HISTORY: The patient does not have any significant medical history. ALLERGIES: No known drug allergy. MEDICATIONS: Please refer to the MAR. SOCIAL HISTORY: The patient lives at home. He denies tobacco or alcohol use. FAMILY HISTORY: The patient denies any family history of colon or gastric cancer. PHYSICAL EXAMINATION: VITAL SIGNS: Reveals blood pressure of 141/88, respirations 16, pulse 61, temperature 98.5. LUNGS: Clear. CARDIOVASCULAR: Regular. ABDOMEN: Soft, tender to palpation in the left upper quadrant. Bowel sounds are positive. LABORATORY DATA: Reveal sodium of 137, potassium 4.5, BUN is 25, creatinine 1.8, glucose is 115, AST is 88, ALT 73, alkaline phosphatase 50, total bilirubin is 1.0, albumin is 3.2. WBC 7.0, hemoglobin is 13.2 with platelet of 103. The patient also has evidence of urinary tract infection. IMAGING: [place] [address] CONSULTATION Name: ASYA RUBALCAVA Room: [address] IN ..#: [id number] Admission: 08/07/17 Attend Phys: Humphrey Calvert Discharge: 08/13/17 Date of : 46 Report #: [id number] ASSESSMENT AND PLAN: The patient with evidence of nausea and vomiting after eating whipped cream and ice cream that he had just purchased. Most probably, he has gastroenteritis due to either viral or bacterial agent. He also has elevated LFTs. I will order a GGT since CT does not show any abnormality of the liver. If GGT was elevated, we will consider abdominal ultrasound. The patient also admits that he had a colonoscopy 7-8 years ago, which was significant for polyps. He will need a colonoscopy as outpatient. <ELECTRONICALLY SIGNED> By: Vaolrie Mercedes MD 08/23/17 1501 1052 1120Valorie Mercedes MD /laverne
[2017-09-24] MEDS ORDERED: FLECAINIDE ACET50 M1 PO (13:37)
== END 2017-08-13 13:57 | disposition home or self-care (01) | DRG 391 ==
LOC: M.ERS 04:26 → M.TBA-ER 07:11 → M.2W 07:11
PROVIDERS: Emergency Medicine; Internal Medicine Gastroenterology; Internal Medicine Nephrology; ADMIT Internal Medicine
PROC: B24BZZ4 Ultrasonography of Heart with Aorta, Transesophageal (ICD-10-PCS; principal; 2017-08-09)
PROC: 0DJD8ZZ Inspection of Lower Intestinal Tract, Via Natural or Artificial Opening Endoscopic (ICD-10-PCS; 2017-08-11)
PROC: 0DB78ZX Excision of Stomach, Pylorus, Via Natural or Artificial Opening Endoscopic, Diagnostic (ICD-10-PCS; 2017-08-11)
PROC: 0DB58ZX Excision of Esophagus, Via Natural or Artificial Opening Endoscopic, Diagnostic (ICD-10-PCS; 2017-08-11)
DX: A08.4 Viral intestinal infection, unspecified (principal); N17.0 Acute kidney failure with tubular necrosis; K22.10 Ulcer of esophagus without bleeding; E44.0 Moderate protein-calorie malnutrition; I48.91 Unspecified atrial fibrillation; I35.0 Nonrheumatic aortic (valve) stenosis; N28.1 Cyst of kidney, acquired; D69.6 Thrombocytopenia, unspecified; K31.84 Gastroparesis; K22.70 Barrett's esophagus without dysplasia; E86.0 Dehydration; B35.1 Tinea unguium; K76.0 Fatty (change of) liver, not elsewhere classified; K44.9 Diaphragmatic hernia without obstruction or gangrene; K26.9 Duodenal ulcer, unspecified as acute or chronic, without hemorrhage or perforation; K64.4 Residual hemorrhoidal skin tags; K57.30 Diverticulosis of large intestine without perforation or abscess without bleeding; I78.1 Nevus, non-neoplastic; N18.3 Chronic kidney disease, stage 3 (moderate); Z68.29 Body mass index [BMI] 29.0-29.9, adult; Z86.010 Personal history of colon polyps; Z85.46 Personal history of malignant neoplasm of prostate; Z92.3 Personal history of irradiation; Z79.899 Other long term (current) drug therapy

== ENCOUNTER 2017-08-15 22:41 | Inpatient (IN) | payer MEDICARE, BC ==
[~2017-08-15] VITALS: Ht 182.9 cm; Wt 88.9 kg
[~2017-08-15 22:41] MED LIST: CARAFATE 1 GM TA1 G1 PO; DIFLUCAN200 MG PO; KETOCONAZOLE15 GM TOP; MAXITROL EYE DRO5 ML OPHTHALMIC; ONDANSETRON HCL4 M2 PO; PROTONIX40 M1 PO; REGLAN 5 MG TAB5 MG PO; XARELTO15 MG PO
[2017-08-15 22:48] VITALS: BP 181/108
[2017-08-15 23:24] LABS: HEMATOCRIT 36.3 % (42.0-52.0); HEMOGLOBIN 12.4 gm/dL (14.0-18.0); MCH 33.1 pg (26.0-34.0); MCHC 34.1 g/dL (28.0-37.0); MCV 96.9 fL (80.0-100.0); MPV 8.3 fl. (7.2-11.1); NUCLEATED RBCS 0 /100WBC; PLATELET COUNT* 184 thou/uL (150-400); RBC 3.74 mil/uL (4.50-6.00); RDW-CV 13.3 % (10.5-14.5); WBC 6.4 thou/uL (4.0-11.0)
[2017-08-15 23:35] LABS: ANION GAP 8 mmol/L (7-16); BUN 17 mg/dL (7-18); CALCIUM 8.3 mg/dL (8.5-10.1); CHLORIDE 100 mmol/L (98-107); CO2 29 mmol/L (21-32); CREATININE 1.4 mg/dL (0.6-1.3); GLUCOSE 115 mg/dL (70-99); POTASSIUM 3.7 mmol/L (3.5-5.1); SODIUM 137 mmol/L (136-145)
[2017-08-15 23:46] LABS: ALBUMIN 2.9 g/dL (3.4-5.0); ALKALINE PHOSPHATASE 72 U/L (46-116); LIPASE 261 U/L (73-393); MAGNESIUM 1.7 mg/dL (1.8-2.4); NT-PRO BRAIN NAT PEPTIDE 6359 pg/mL (<300); SGOT 38 U/L (15-37); SGPT 65 U/L (30-65); TOTAL BILIRUBIN 0.9 mg/dL (<0.1-1.0); TOTAL PROTEIN 6.4 g/dL (6.4-8.2); TROPONIN-I LEVEL <0.06 ng/mL (<0.06)
[2017-08-15 23:52] LABS: APTT 35.3 Seconds (25.0-31.3); INR 1.3; PROTIME 12.4 Seconds (9.20-11.50)
[2017-08-16 00:16] LABS: ABSOLUTE EOSINOPHILS 0.2 thou/uL (0.0-0.7); ABSOLUTE LYMPHOCYTES 0.4 thou/uL (0.8-5.3); ABSOLUTE MONOCYTES 0.3 thou/uL (0.0-1.2); ABSOLUTE NEUTROPHILS 5.5 thou/uL (1.6-8.1); PLATELET ESTIMATE ADEQUATE
[2017-08-16 04:15] VITALS: BP 152/99
[2017-08-16 04:52] VITALS: BP 166/104
[2017-08-16 08:00] VITALS: BP 167/106
[2017-08-16 12:07] VITALS: BP 159/110
[2017-08-16 15:15] VITALS: BP 144/103
[2017-08-16 17:00] LABS: CALCIUM 8.5 mg/dL (8.5-10.1); CREATININE 1.3 mg/dL (0.6-1.3); MAGNESIUM 1.8 mg/dL (1.8-2.4); POTASSIUM 3.6 mmol/L (3.5-5.1)
--- NOTE | 2017-08-16 17:53 | EKG ---
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1950 Requested By: Joel Burgos Order Number: [id number] MD: Donnie Cavanaugh Measurements Intervals [place] Rate: 107 P: AL: QRS: 74 QRSD: 97 T: 44 QT: 322 QTc: 430 Interpretive Statements Atrial fibrillation Repol abnrm suggests ischemia, diffuse leads Compared to ECG 08/08/2017 08:34:14 Early repolarization now present Possible ischemia now present Intraventricular conduction delay no longer present Electronically Signed On 08-16-2017 17:53:01 CDT by Donnie Cavanaugh [email or web address] <ELECTRONICALLY SIGNED> By: Donnie Cavanaugh MD, FAC 08/16/17 1753 [id number] [id number] Donnie Cavanaugh MD, [facility] /EPI
[2017-08-16 20:15] VITALS: BP 153/93
[2017-08-16 23:08] LABS: HIV-1/HIV-2 ANTIBODY Non Reactive (Non Reactive)
[2017-08-17] VITALS (7 sets, daily range): BP systolic 143–169; BP diastolic 91–112
[2017-08-17 05:31] LABS: ABSOLUTE LYMPHOCYTES 0.5 thou/uL (0.8-5.3); ABSOLUTE MONOCYTES 0.2 thou/uL (0.0-1.2); ABSOLUTE NEUTROPHILS 3.5 thou/uL (1.6-8.1); BASOPHILS 0.3 %; EOSINOPHILS 1.1 %; HEMATOCRIT 32.1 % (42.0-52.0); HEMOGLOBIN 11.2 gm/dL (14.0-18.0); LYMPHOCYTES 10.9 %; MCHC 34.8 g/dL (28.0-37.0); MCV 94.6 fL (80.0-100.0); MONOCYTES 3.9 %; MPV 8.6 fl. (7.2-11.1); NUCLEATED RBCS 0 /100WBC; PLATELET COUNT* 194 thou/uL (150-400); POLYS 83.8 %; RBC 3.39 mil/uL (4.50-6.00); RDW-CV 12.9 % (10.5-14.5); WBC 4.2 thou/uL (4.0-11.0)
[2017-08-17 05:56] LABS: CALCIUM 8.4 mg/dL (8.5-10.1); CREATININE 1.3 mg/dL (0.6-1.3); POTASSIUM 3.5 mmol/L (3.5-5.1)
--- NOTE | 2017-08-17 07:52 | CON ---
[address] [address] CONSULTATION Name: ASYA RUBALCAVA Room: [address] IN M.R.#: [id number] Admission: 08/16/17 Attend Phys: Lucia Cordoba MD Discharge: Date of : 46 Report #: [id number] THIS REPORT FOR: //name// CC: [facility] physician/PCP Lucia Cordoba DATE OF SERVICE: 08/16/2017 ATTENDING PHYSICIAN: Rob Fraga M.D. REASON FOR EVALUATION: Herpes esophagitis as well as confirmation of H. pylori infection. HISTORY OF PRESENT ILLNESS: Chart reviewed, patient examined. This is a 67-year-old who actually had significant difficulties over the course of the last couple of weeks, had developed some chest-related discomfort, dyspnea, ankle swelling, was admitted and subsequently discharged in latter part of last week with new diagnosis of atrial fibrillation. In addition to that, he had nausea, emesis, diarrhea, underwent upper endoscopy and it has just confirmed today the presence of severe esophagitis consistent with Herpesviridae. In addition, he had elements microscopically to suggest H. pylori. He was initiated on therapy with parenteral acyclovir as well as a combination therapy for H. pylori. He has evidence of hypercoagulable state with renal artery occlusion, was ruled out for myocardial infarction. Apparently, he has a more distant history of prostate cancer with radiation. ALLERGIES: None known. MEDICATIONS: Include acyclovir 400 IV q.8, sucralfate, pantoprazole, ondansetron, heparin. PAST MEDICAL HISTORY: As noted above, history of pulmonary embolus, atrial fibrillation, reflux, history of prostate cancer. SOCIAL HISTORY: Nonsmoker, no ethanol. FAMILY HISTORY: Noncontributory. REVIEW OF SYSTEMS: Denies significant pulmonary-related complaints. He has been dyspneic earlier. PHYSICAL EXAMINATION: GENERAL: He appears moderately distressed, somewhat chronically ill. He is lucid. VITAL SIGNS: Temperature 98.9, pulse 92, respirations 17, blood pressure 167/106[place] [address] CONSULTATION Name: ASYA RUBALCAVA Room: [address] IN ..#: [id number] Admission: 08/16/17 Attend Phys: Lucia Cordoba MD Discharge: Date of : 46 Report #: [id number] SKIN: Warm, dry, no rashes. HEENT: Otherwise, unremarkable. NECK: Supple. LUNGS: Diminished, otherwise clear. HEART: Regular. I do not appreciate murmur. ABDOMEN: I do not appreciate any palpable tenderness. There are no peritoneal signs. GENITOURINARY: Deferred. RECTAL: Deferred. LABORATORY DATA: Lower extremity Doppler showed nonocclusive DVT in the right peroneal veins. 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 No evidence of aortic dissection. Chest x-ray: Mild scarring at the lung bases. X-ray of the neck, no evident process. CBC: White count 6.4, H and H 12.4 and 36.3, platelets of 184. Electrolytes: Sodium 137, potassium 3.7, chloride 100, bicarbonate was 29, anion gap of 8, BUN and creatinine 17 and 1.4, glucose of 115. AST of 38, ALT 65. ASSESSMENT AND PLAN: Severe esophagitis, apparently has microscopic evidence of herpetic etiology. I agree with parenteral acyclovir, I did discuss with GI. We will go ahead and start combination therapy for H. pylori as well, certainly raises question of some underlying immune issue. We will go ahead and check acute hepatitis panel, it should give us a hepatitis C antibody. We will perhaps have further diagnostic evaluation. <ELECTRONICALLY SIGNED> By: Lenny Florentino MD 08/17/17 0752 1213 1417Jomichelle Florentino MD /nt
[2017-08-17 10:09] LABS: HEPATITIS B SURFACE AG Negative (Negative)
[2017-08-18 04:22] VITALS: BP 147/96
[2017-08-18 08:06] VITALS: BP 169/110
[2017-08-18 10:11] LABS: ANA INTERPRETATION Negative (Negative)
[2017-08-18 11:31] VITALS: BP 166/101
[2017-08-18 15:10] VITALS: BP 170/111
[2017-08-18 20:30] VITALS: BP 152/102
[2017-08-19] VITALS: BP 142/97
[2017-08-19 03:19] VITALS: BP 154/89
[2017-08-19 07:47] VITALS: BP 152/91
[2017-08-19 09:47] VITALS: BP 152/91
[2017-08-19 11:30] VITALS: BP 166/113
[2017-08-19] MEDS ORDERED: VALTREX1000 MG PO (12:26)
[2017-08-19] MEDS ORDERED: AMOXICILLIN 50500 M1 PO (12:29)
[2017-08-19] MEDS ORDERED: BIAXIN 500 MG500 M2 PO (12:30)
[2017-08-19] MEDS ORDERED: CARDIZEM CD120 MG PO (12:41)
[2017-08-19 14:39] VITALS: BP 152/91
--- NOTE | 2017-08-23 15:01 | CON ---
[address] [address] CONSULTATION Name: ASYA RUBALCAVA Room: [address] IN M.R.#: [id number] Admission: 08/16/17 Attend Phys: Lucia Cordoba MD Discharge: 08/19/17 Date of : 46 Report #: [id number] THIS REPORT FOR: //name// CC: [facility] physician/PCP Lucia PILLAI DICTATED BY: Lina Parra [facility] DATE OF SERVICE: 08/16/2017 PRIMARY CARE PHYSICIAN: Dr. Stas Heart. WASHERETTE MACHINE OPERATOR: Aryan Mederos MD [facility]. Please note at the time of this dictation, the patient was seen and physically examined by myself. REASON FOR CONSULTATION: Chest pain. HISTORY OF PRESENT ILLNESS: This 67-year-old male who just was discharged from the hospital on Wednesday where he had been admitted for new onset atrial fibrillation, and he was also having some generalized abdominal discomfort and was diagnosed with gastroenteritis, along with having some difficulty swallowing and some painful swallowing and that he got full very quickly. The patient underwent an EGD and colonoscopy with Dr. Hawk on 08/07/2017 that showed severe erosive esophagitis with distal superficial ulcer and probable short segment Schmitt's. Stomach, he had a 3 cm hiatal hernia that was biopsied for H. pylori and was significant for H. pylori. On his ulcer, it was noted to be herpetic esophagitis. Duodenum: Multiple shallow ulcers within the duodenal bulb and the second portion of the duodenum. Colonoscopy showed mild external hemorrhoids, mild sigmoid diverticulosis, radiation-induced noted in the rectal vault from radiation therapy. He was placed on Protonix 40 mg b.i.d. and Carafate 1 gram a.c. and at bedtime. He then underwent a GET prior to discharge, and he was noted to have delayed gastric emptying with 21% still sitting in his stomach at 4 hours. He was started on low dose Reglan a.c. and at bedtime. After the patient was discharged on Wednesday, we received a call from the pathologist stating that he was positive for herpetic esophagitis. They did not tell us that he was positive for H. pylori. We made numerous attempts to try to get a hold of him; however, the number that we had on file and the hospital as well was a disconnected number. We did send him a letter on Wednesday once we found out this for him to contact our office immediately. However, the patient has not been home to receive that nor has he. The patient presented back to the hospital with increasing nausea and shortness of breath and having pain in his throat and upper chest area and a lot of [place] [address] CONSULTATION Name: ASYA RUBALCAVA Room: [address] IN .R.#: [id number] Admission: 08/16/17 Attend Phys: Lucia Cordoba MD Discharge: 08/19/17 Date of : 46 Report #: [id number] ALLERGIES: No known drug allergies. MEDICATIONS: From home include Zofran, Xarelto, Reglan, Protonix, Carafate, ketaconazole topical. PAST MEDICAL HISTORY: New onset of atrial fib and GERD, recently diagnosed with herpetic esophagitis as well as H. pylori. FAMILY HISTORY: Noncontributory. SOCIAL HISTORY: Denies any alcohol, tobacco or illegal drug use. REVIEW OF SYSTEMS: Twelve-point review of systems is essentially negative except what is mentioned in the HPI. PHYSICAL EXAMINATION: VITAL SIGNS: Temperature 36.8, pulse 97, respirations 17, blood pressure 159/82. HEART: Irregular rate and rhythm. LUNGS: Diminished, but clear. ABDOMEN: Soft, positive bowel sounds in all 4 quadrants with some slight epigastric tenderness noted to palpation. LABORATORY DATA: Hemoglobin is 12.4, white count is 6.4, 36.3 is hematocrit, platelets 184. Sodium 137, potassium 3.7, chloride 100, CO2 of 29, BUN is 17, creatinine is 1.4, glucose is 115 and a GFR of 50. PT is 12.4 and INR is 1.3. IMPRESSION: 1. Dysphagia. 2. Nausea. 3. Chest pain. 4. Gastroparesis. 5. Atrial fibrillation. 6. Anticoagulant therapy and is on Eliquis. PLAN: 1. We will start H. pylori treatment with Protonix, amoxicillin and clarithromycin. 2. We will start acyclovir IV 400 q.8 for his herpetic esophagitis. 3. We will await response to above and make further recommendations at that time. Thank you for allowing us to participate in this patient's care. Please do not hesitate to call with any questions in regard to this consult. [address] [address] CONSULTATION Name: ASYA RUBALCAVA: [address] [facility] IN M.R.#: [id number] Admission: 08/16/17 Attend Phys: Lucia Cordoba MD Discharge: 08/19/17 Date of : 46 Report #: [id number] ADDENDUM I have personally seen and examined the patient and reviewed labs. The patient is well known to us as he was recently diagnosed with H. pylori and herpetic esophagitis. We had tried to get a hold of the patient to recommend treatment in this regard, but his number was not the right number in the chart. He presents to the hospital with dysphagia, nausea and chest pain. The patient also is on Eliquis for recent diagnosis of AFib. We will go ahead and treat the H. pylori with a combination of PPI and antibiotics. Also put him on acyclovir IV for his herpetic esophagitis. We will consider upper endoscopy with biopsies of the esophagus and the stomach in 2 months. The patient is agreeable with plan. <ELECTRONICALLY SIGNED> By: Valorie Mercedes MD 08/23/17 1501 1215 1455Valorie Mercedes MD /nt
[2017-09-24] MEDS ORDERED: FLECAINIDE ACET50 M1 PO (13:37)
== END 2017-08-19 14:30 | disposition home or self-care (01) | DRG 175 ==
LOC: M.ERS 22:41 → M.2W 08-16 02:00 → M.TBA-ER 08-16 02:00 → M.2W 08-16 02:46
PROVIDERS: Emergency Medicine Emergency Medical Services; Internal Medicine; Specialist; ADMIT Internal Medicine
DX: I26.99 Other pulmonary embolism without acute cor pulmonale (principal); I50.31 Acute diastolic (congestive) heart failure; J96.01 Acute respiratory failure with hypoxia; N28.0 Ischemia and infarction of kidney; I48.91 Unspecified atrial fibrillation; K21.9 Gastro-esophageal reflux disease without esophagitis; R13.10 Dysphagia, unspecified; K20.8 Other esophagitis; K25.9 Gastric ulcer, unspecified as acute or chronic, without hemorrhage or perforation; K31.84 Gastroparesis; Z79.01 Long term (current) use of anticoagulants; Z85.46 Personal history of malignant neoplasm of prostate; Z79.82 Long term (current) use of aspirin; Z79.899 Other long term (current) drug therapy

== ENCOUNTER → 2017-09-24 | Outpatient (CLI) | payer MEDICARE, BC ==
[~2017-09-24] MED LIST changes: +AMOXICILLIN 50500 M1 PO; +BIAXIN 500 MG500 M2 PO; +CARDIZEM CD120 MG PO; +FLECAINIDE ACET50 M1 PO; +NORCO 5-325 TA1 EACH PO; +PREDNISONE 20 M20 M1 PO; +VALTREX1000 MG PO
[2017-09-24 13:32] LABS: HEMATOCRIT 43.2 % (42.0-52.0); HEMOGLOBIN 14.6 gm/dL (14.0-18.0); MCH 32.4 pg (26.0-34.0); MCHC 33.8 g/dL (28.0-37.0); MCV 96.1 fL (80.0-100.0); MPV 7.7 fl. (7.2-11.1); RBC 4.49 mil/uL (4.50-6.00); RDW-CV 15.3 % (10.5-14.5); WBC 4.6 thou/uL (4.0-11.0)
[2017-09-24 13:38] VITALS: BP 168/89
[2017-09-24 13:42] LABS: CALCIUM 9.1 mg/dL (8.5-10.1); CREATININE 1.5 mg/dL (0.6-1.3); POTASSIUM 4.1 mmol/L (3.5-5.1)
[2017-09-24 13:43] LABS: APTT 34.1 Seconds (25.0-31.3); INR 1.3; PROTIME 12.4 Seconds (9.20-11.50)
[2017-09-24 13:47] LABS: ALBUMIN 3.8 g/dL (3.4-5.0); TOTAL BILIRUBIN 0.9 mg/dL (<0.1-1.0); TOTAL PROTEIN 7.2 g/dL (6.4-8.2)
--- NOTE | 2017-09-24 17:11 | EKG ---
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 : 1950 Requested By: Aryan Mederos Order Number: [id number] Reading MD: Aryan Mederos Measurements Intervals [place] Rate: 54 P: 41 MO: 207 QRS: 60 QRSD: 116 T: 52 QT: 515 QTc: 489 Interpretive Statements Sinus rhythm Nonspecific intraventricular conduction delay Compared to ECG 08/15/2017 22:46:32 Intraventricular conduction delay now present Atrial fibrillation no longer present Early repolarization no longer present Possible ischemia no longer present Electronically Signed On 09-24-2017 17:10:54 CDT by Aryan Mederos [email or web address] <ELECTRONICALLY SIGNED> By: Aryan Mederos MD, FACC 09/24/17 1710 1344 1344 Aryan Mederos MD, [facility] /EPI
== END ==
LOC: M.CL 10:59
PROVIDERS: Internal Medicine Cardiovascular Disease
DX: Z01.818 Encounter for other preprocedural examination (principal); I48.1 Persistent atrial fibrillation

== ENCOUNTER 2017-10-30 09:06 | Emergency (ER) | payer MEDICARE, BC ==
[~2017-10-30] VITALS: Ht 205.7 cm; Wt 91.2 kg
[~2017-10-30 09:06] MED LIST changes: -NORCO 5-325 TA1 EACH PO; -PREDNISONE 20 M20 M1 PO
[2017-10-30] MEDS ORDERED: NORCO 5-325 TA1 EACH PO (09:36)
[2017-10-30] MEDS ORDERED: PREDNISONE 20 M20 M1 PO (09:36)
[2017-10-30 09:47] VITALS: BP 169/94
== END 2017-10-30 09:48 | disposition home or self-care (01) ==
LOC: M.ERS 09:06
DX: M10.9 Gout, unspecified (principal); I48.91 Unspecified atrial fibrillation; K21.9 Gastro-esophageal reflux disease without esophagitis

== ENCOUNTER → 2017-12-16 | Outpatient (CLI) | payer MEDICARE, BC ==
[~2017-12-16] MED LIST changes: +NORCO 5-325 TA1 EACH PO; +PREDNISONE 20 M20 M1 PO
== END ==
LOC: M.ULTRA 12:54
DX: I82.591 Chronic embolism and thrombosis of other specified deep vein of right lower extremity (principal); M79.89 Other specified soft tissue disorders

== ENCOUNTER 2018-10-28 06:26 | Emergency (ER) | payer MEDICARE, BC ==
[~2018-10-28] VITALS: Ht 182.9 cm; Wt 88.0 kg
[2018-10-28 07:38] LABS: HEMATOCRIT 41.2 % (42.0-52.0); MCH 32.4 pg (26.0-34.0); MCV 95.2 fL (80.0-100.0); MPV 8.1 fl. (7.2-11.1); NUCLEATED RBCS 0 /100WBC; PLATELET COUNT* 227 thou/uL (150-400); RBC 4.33 mil/uL (4.50-6.00); RDW-CV 13.4 % (10.5-14.5); WBC 7.1 thou/uL (4.0-11.0)
[2018-10-28 07:44] LABS: CALCIUM 8.6 mg/dL (8.5-10.1); CREATININE 1.3 mg/dL (0.6-1.3); POTASSIUM 3.7 mmol/L (3.5-5.1)
[2018-10-28 07:48] LABS: ALBUMIN 2.9 g/dL (3.4-5.0); TOTAL BILIRUBIN 0.9 mg/dL (<0.1-1.0); TOTAL PROTEIN 6.4 g/dL (6.4-8.2); URIC ACID* 5.5 mg/dL (2.6-7.2)
[2018-10-28 08:01] LABS: ABSOLUTE EOSINOPHILS 0.1 thou/uL (0.0-0.7); ABSOLUTE LYMPHOCYTES 0.6 thou/uL (0.8-5.3); ABSOLUTE MONOCYTES 0.1 thou/uL (0.0-1.2); ABSOLUTE NEUTROPHILS 6.3 thou/uL (1.6-8.1); ANISOCYTOSIS 1+; LARGE PLATELETS RARE; PLATELET ESTIMATE ADEQUATE; POIKILOCYTOSIS 1+
[2018-10-28] MEDS ORDERED: HYDROCODON-ACE1 EAC7 PO (08:04)
[2018-10-28] MEDS ORDERED: PREDNISONE 10 M10 M1 PO (08:04)
[2018-10-28 08:15] VITALS: BP 100/69
== END 2018-10-28 08:10 | disposition home or self-care (01) ==
LOC: M.ERS 06:26
PROVIDERS: Emergency Medicine
DX: M25.572 Pain in left ankle and joints of left foot (principal); M79.645 Pain in left finger(s); L53.9 Erythematous condition, unspecified; I48.91 Unspecified atrial fibrillation; K21.9 Gastro-esophageal reflux disease without esophagitis

== ENCOUNTER 2018-11-09 20:52 | Inpatient (IN) | payer MEDICARE, BC ==
[~2018-11-09] VITALS: Ht 182.9 cm; Wt 88.5 kg
[~2018-11-09 20:52] MED LIST changes: +HYDROCODON-ACE1 EAC7 PO; +PREDNISONE 10 M10 M1 PO
[2018-11-09 20:59] VITALS: BP 164/98
[2018-11-09 21:27] LABS: ABSOLUTE LYMPHOCYTES 1.5 thou/uL (0.8-5.3); ABSOLUTE MONOCYTES 0.5 thou/uL (0.0-1.2); BASOPHILS 0.4 %; EOSINOPHILS 0.1 %; HEMATOCRIT 41.7 % (42.0-52.0); LYMPHOCYTES 11.5 %; MCH 31.5 pg (26.0-34.0); MCHC 33.5 g/dL (28.0-37.0); MCV 94.1 fL (80.0-100.0); MONOCYTES 3.7 %; MPV 7.6 fl. (7.2-11.1); NUCLEATED RBCS 0 /100WBC; PLATELET COUNT* 287 thou/uL (150-400); POLYS 84.3 %; RBC 4.43 mil/uL (4.50-6.00)
--- NOTE | 2018-11-09 21:36 | NUR ---
PATIENTS MENDES OUTPIU GROSSELY BLOODY. PATIENTS MENDES IRRIGATED WITH STERIL;E SALINE X 400 CC.
[2018-11-09 21:38] LABS: CALCIUM 9.1 mg/dL (8.5-10.1); CREATININE 1.2 mg/dL (0.6-1.3); POTASSIUM 4.2 mmol/L (3.5-5.1)
[2018-11-09 21:43] LABS: ALBUMIN 3.1 g/dL (3.4-5.0); TOTAL BILIRUBIN 0.4 mg/dL (<0.1-1.0); TOTAL PROTEIN 6.6 g/dL (6.4-8.2)
[2018-11-09 22:02] LABS: URINE BILIRUBIN NEGATIVE (Negative); URINE BLOOD 3+ (Negative); URINE CLARITY CLOUDY; URINE COLOR RED; URINE GLUCOSE-RANDOM 1+ (Negative); URINE KETONES 2+ (Negative); URINE LEUKOCYTES-REFLEX 3+ (Negative); URINE NITRITE-REFLEX POSITIVE (Negative); URINE PROTEIN 3+ (Negative); URINE SPECIFIC GRAVITY <= 1.005 (1.005-1.030); URINE UROBILINOGEN >= 8.0 E.U./dl (0.2-1.0)
[2018-11-09 22:07] LABS: MUCUS None Seen strn/LPF (None Seen); SQUAMOUS NONE SEEN /LPF (0-3)
[2018-11-09 22:11] LABS: BACTERIA-REFLEX 1-9 Few /HPF (None Seen); CASTS None Seen /LPF (None Seen)
[2018-11-09 22:12] LABS: CRYSTALS None Seen /LPF (None Seen); URINE RBC >20 Many /HPF (0-2); URINE WBC-REFLEX 0-5 Rare /HPF (0-5)
--- NOTE | 2018-11-09 22:32 | NUR ---
PATIENT CONTINUALLY REQUIRING SALINE MENDES IRRIGATION. ED DIGITAL MARKETING APPRENTICE NOTIFIED OF THIS HSA ORDERD THREE WAY CATHETER AND BLADDER IRRIGATION.
--- NOTE | 2018-11-09 23:15 | NUR ---
THREE WAY CATHETER PLACED AND IRRIGATION STARTED. PATIENT CATHETER NOT DRAINING. DR KHAN AT BEDSIDE ATTEMPTING TO IRRIGATE CATHETER.
[2018-11-09 23:37] LABS: APTT 26.4 Seconds (25.0-31.3); PROTIME 10.4 Seconds (9.20-11.50)
--- NOTE | 2018-11-10 00:29 | NUR ---
UROLOGIST IS AT BEDSIDE WITH PATIENT.
[2018-11-10 03:00] VITALS: BP 123/80
[2018-11-10 04:00] VITALS: BP 109/81
--- NOTE | 2018-11-10 05:58 | NUR ---
PT ARRIVE AT 0300 FROM PACU. ALERT AND ORIENTED, VITALS STABLE RA. ADMISSION HISTORY/ASSESSMENT COMPLETED. PT DENIED PAIN. NO NAUSEA OR VOMITING. MENDES IN PLACE WITH PINKISH URINE IN THE BAG. HOURLY ROUNDING COMPLETED. WILL CONTINUE TO MONITOR.
[2018-11-10 07:27] LABS: HEMATOCRIT 42.1 % (42.0-52.0); MCH 31.5 pg (26.0-34.0); MCHC 33.3 g/dL (28.0-37.0); MCV 94.6 fL (80.0-100.0); RBC 4.45 mil/uL (4.50-6.00); RDW-CV 13.4 % (10.5-14.5); WBC 12.6 thou/uL (4.0-11.0)
[2018-11-10 07:33] LABS: CALCIUM 8.8 mg/dL (8.5-10.1); CREATININE 1.2 mg/dL (0.6-1.3); POTASSIUM 4.6 mmol/L (3.5-5.1)
[2018-11-10 07:35] VITALS: BP 113/77
--- NOTE | 2018-11-10 14:23 | NUR ---
SW met with pt to complete initial assessment, introduce self, and SW role. Pt alert, oriented, pleasant. Pt lives at home independently. Pt did not express any dc needs at this time.
[2018-11-10 16:00] VITALS: BP 108/62
--- NOTE | 2018-11-10 18:37 | NUR ---
PATIENT PLEASANT AND COOPERATIVE THIS SHIFT. MENDES CATH INTACT, URINE NOTED PINK THRU SHIFT. MENDES IRRIGATED W/ 50ML NS AFTER SHOWER THIS AM, PATIENT STATES HANGING MENDES BAG AT BLADDER HEIGHT DURING SHOWER, FELT "LUMP INCREASING" IN LLQ AFTER. PATIENT EDUCATED ON KEEPING MENDES BAG LOWER THAN BLADDER EVEN IN THE SHOWER. PATIENT STATES VERBALLY OF UNDERSTANDING. MENDES CATH CARE REVIEWED W/ VERBAL UNDERSTANDING. PATIENT DRINKING PLENTY OF WATER THIS SHIFT. PATIENT INSTRUCTECD ON MONITORING WATER INTAKE AND WATER INTOXICATION IS POSSIBLE WITH TOO MUCH. PATIENT STATES VERBALLY OF UNDERSTANDING. IV SL, NOTED WNL, FLUSHES EASILY W/ 10ML NS. PATIENT DENIES PAIN/NAUSEA THIS SHIFT. PATIENT STATES FEELING MUCH BETTER. PATIENT INSTRUCTED TO CALL W/ ANY CHANGE IN URINE OR ABD SYMPTOMS. ~TJRN
--- NOTE | 2018-11-10 18:58 | NUR ---
PATIENT STATES NO BM TODAY. PRUNE JUICE GIVEN X2, DSS GIVEN. ~TJRN
[2018-11-10 19:55] VITALS: BP 130/83
[2018-11-11 04:00] LABS: ABSOLUTE LYMPHOCYTES 1.1 thou/uL (0.8-5.3); ABSOLUTE MONOCYTES 0.3 thou/uL (0.0-1.2); ABSOLUTE NEUTROPHILS 9.9 thou/uL (1.6-8.1); BASOPHILS 0.2 %; HEMOGLOBIN 12.6 gm/dL (14.0-18.0); LYMPHOCYTES 9.5 %; MCH 31.5 pg (26.0-34.0); MCHC 33.3 g/dL (28.0-37.0); MCV 94.5 fL (80.0-100.0); MONOCYTES 2.8 %; MPV 8.6 fl. (7.2-11.1); NUCLEATED RBCS 0 /100WBC; PLATELET COUNT* 245 thou/uL (150-400); POLYS 87.5 %; RBC 4.02 mil/uL (4.50-6.00); RDW-CV 13.4 % (10.5-14.5); WBC 11.3 thou/uL (4.0-11.0)
[2018-11-11 04:14] LABS: CALCIUM 8.7 mg/dL (8.5-10.1); CREATININE 1.2 mg/dL (0.6-1.3); POTASSIUM 4.3 mmol/L (3.5-5.1)
--- NOTE | 2018-11-11 04:51 | NUR ---
PATIENT REPORTED SOME CONSTIPATION AT BEGINNING OF SHIFT. I ENCOURAGED AMBULATING TOLERATED IN THE HALLS. HE THEN BEGAN TO FEEL PAIN AND SWELLING IN THE LOWER ABDOMINAL AREA AND SOME BRIGHT BLOOD WAS VISIBLY COMING OUT OF CATHETER INSERTION POINT. HAD HIM LAY DOWN AND REST AND SWELLING DID GO DOWN. THE URINE IN THE BAG WAS A VERY LIGHT PINK COLOR AND HIS PAIN DID SUBSIDE. HE DID NOT WANT ANY PAIN MEDICATION. ORDERED A SUPPOSITORY AND ADMINISTERED BEFORE 10 PM. HE WAS ABLE TO HAVE A BOWEL MOVEMENT WITHIN AN HOUR AFTER. HE WAS THEN ABLE TO REST COMFORTABLY. ADMINISTERED ABX IV DURING SHIFT AND MONITORED CATHETER TO ENSURE BLEEDING HAD STOPPED.
[2018-11-11 07:35] VITALS: BP 107/76
--- NOTE | 2018-11-11 15:12 | NUR ---
[facility] met with pt to follow up regarding dc planning. Pt expressed feeling very anxious about dc home alone and felt that SNF would be pt preference at dc. Pt requested [facility]; [facility] faxed referral; therapy eval/notes pending. [facility] ph [phone], fax [phone]
[2018-11-11 16:00] VITALS: BP 114/71
--- NOTE | 2018-11-11 19:00 | NUR ---
PATIENT PLEASANT AND COOPERATIVE THIS SHIFT. MENDES CATH NOTED PATENT, PINK TO TEA COLORED URINE NOTED THRU SHIFT, NO CLOTS. UROLOGY IN TO SEE PATIENT THIS AFTERNOON, MENDES IRRIGATION DONE PER W/ NO CLOTS NOTED. PATIENT DENIES PAIN. REVIEW OF MENDES CATH CARES DONE, PATIENT +RETURN DEMO WITH UNDERSTANDING OF PROPER MENDES CARES. ~TJRN
[2018-11-11 21:30] VITALS: BP 114/78
--- NOTE | 2018-11-12 04:32 | NUR ---
PT ALERT AND ORIENTED. VITALS STABLE RA. IV ANTIBIOTIC GIVEN ORDERED. PT DENIED PAIN. MENDES IN PLACE, DRAINING PINK URINE WITH NO CLOTS. PT SLEEPING ON HOURLY ROUNDINGS. WILL CONTINUE TO MONITOR.
[2018-11-12 04:47] LABS: ABSOLUTE EOSINOPHILS 0.1 thou/uL (0.0-0.7); ABSOLUTE LYMPHOCYTES 1.6 thou/uL (0.8-5.3); ABSOLUTE MONOCYTES 0.3 thou/uL (0.0-1.2); ABSOLUTE NEUTROPHILS 4.9 thou/uL (1.6-8.1); BASOPHILS 0.5 %; EOSINOPHILS 1.3 %; HEMATOCRIT 39.5 % (42.0-52.0); HEMOGLOBIN 13.2 gm/dL (14.0-18.0); LYMPHOCYTES 23.1 %; MCH 31.8 pg (26.0-34.0); MCHC 33.3 g/dL (28.0-37.0); MCV 95.5 fL (80.0-100.0); MPV 8.8 fl. (7.2-11.1); NUCLEATED RBCS 0 /100WBC; PLATELET COUNT* 229 thou/uL (150-400); POLYS 70.1 %; RBC 4.14 mil/uL (4.50-6.00); RDW-CV 13.3 % (10.5-14.5)
[2018-11-12 04:55] LABS: CREATININE 1.4 mg/dL (0.6-1.3); POTASSIUM 4.2 mmol/L (3.5-5.1)
[2018-11-12 07:25] VITALS: BP 113/84
[2018-11-12] MEDS ORDERED: LEVSIN0.125 MG PO (09:53)
[2018-11-12 09:55] VITALS: BP 113/84
--- NOTE | 2018-11-12 17:08 | NUR ---
PT REMAINED ALERT AND ORIENTED. PT RESTING IN ROOM. MENDES IN PLACE, URINE PINK WITH NO CLOTS. STRICT I&O RECORDED. PT RESTING IN ROOM. FALL RISK PRECAUTIONS IN PLACE. HOURLY ROUNDING COMPLETED. WILL CONTINUE TO MONITOR.
[2018-11-12 19:15] VITALS: BP 115/76
[2018-11-12 19:55] VITALS: BP 115/76
--- NOTE | 2018-11-13 06:41 | NUR ---
PATIENT SLEPT WELL DURING THIS SHIFT. PT UP TO BSC WITH USE OF WALKER. PT WITH ONE LARGE BOWEL MOVEMENT DURING THIS SHIFT. PT WITH MENDES TO DEPENDENT DRAIN WITH BRIGHT RED URINE; 2000ML OUTPUT. PT IS SALINE LOCKED. PT DENIES PAIN/NAUEA DURING THIS SHIFT. PT DENIES NEEDS AT THIS TIME. FREQUENTLY USED ITEMS AND CALL LIGHT WITHIN REACH. WILL CONTINUE TO MONITOR.
[2018-11-13 08:03] VITALS: BP 114/84
[2018-11-13 08:53] VITALS: BP 114/84
--- NOTE | 2018-11-13 11:05 | NUR ---
PATIENT PLANNING TO DISCHARGE HOME. PATIENT HAS NO PREVIOUS EXPERIENCE WITH OR ANY PREFERENCE FOR A HOME HEALTH AGENCY. [facility] CONTACTED. SPOKE TO [facility]. INFORMATION FAXED. PATIENT INFORMED HE WILL HAVE NURSING CARE FROM [facility].
--- NOTE | 2018-11-13 13:00 | NUR ---
PT DISCHARGED AND LEFT UNIT BY WHEELCHAIR WITH NURSING STAFF AND FRIEND TO HOME WITH HOME HEALTH. IV OUT. MENDES IN AND PATENT. PAPER RX AND CARE NOTES GIVEN. PERSONAL BELONGINGS SENT WITH PT. PT STABLE UPON DISCHARGE
--- NOTE | 2018-11-16 11:02 | OP ---
[facility] [address] [place] [address] OPERATIVE REPORT Name: GINIASYA GAL Room: [address] M.R.#: [id number] Admission: 11/10/18 Attend Phys: Humphrey Calvert Discharge: 11/13/18 Date of : 46 Report #: [id number] THIS REPORT FOR: //name// CC: [facility] Ahmet NAVARRO MD DATE OF SERVICE: 11/10/2018 PREOPERATIVE DIAGNOSES: Clot retention malpositioned Castillo catheter and recent salvage prostatectomy for recurrent prostate cancer. POSTOPERATIVE DIAGNOSES: Clot retention malpositioned Castillo catheter and recent salvage prostatectomy for recurrent prostate cancer. PROCEDURE: Cystourethroscopy, clot evacuation, complex Castillo placement (20-Romanian lower brule over a wire) and cystogram. SURGEON: Ly Rodgers MD ANESTHESIA: General. ESTIMATED BLOOD LOSS: None. COMPLICATION: None. SPECIMENS: None. INDICATIONS FOR PROCEDURE: The patient is a 68-year-old male who underwent salvage prostatectomy by Dr. Navarro at in approximately 10/15/18. Catheter was removed a week later and he had been voiding fine on his own until today when he developed gross hematuria and clot retention. He is on Xarelto. The ER attempted catheterization x 2 with some return of urine, but clearly was not draining well and clot off immediately. It was suspected that his catheter was malpositioned and the CAT scan confirmed the nurse had blown up the catheter balloon disrupting the anastomosis. Unfortunately I was not contacted about this patient until after they had already catheterized him. It was recommended he undergo emergent catheter placement in the operating room with clot evacuation. Risks of procedure were discussed with the patient including infection, bleeding, injury to urethra, or bladder, chance that I may not be able to place the catheter and he requires suprapubic tube, chance of poor healing given prior radiation. He voiced clear understanding [place] [address] OPERATIVE REPORT Name: ASYA RUBALCAVA Room: [address] M.R.#: [id number] Admission: 11/10/18 Attend Phys: Humphrey Calvert Discharge: 11/13/18 Date of : 46 Report #: [id number] DESCRIPTION OF PROCEDURE: After informed consent was obtained, the patient was taken back to the operating suite and placed supine. After induction of general anesthesia, he was placed in dorsal lithotomy position. His current 24-Romanian 3-way catheter placed by the ER was draining some bloody urine. The balloon was deflated and there was 15 mL in the balloon and there was some stringy clot at the end of the catheter when it was removed. Genitalia were then prepped and draped in standard fashion. Rigid cystoscopy was performed. The anterior urethra was normal. Everything to the sphincter was normal, but once past the sphincter, there was total disruption of the anastomosis. Initially, I had difficulty locating the bladder lumen. Sutures were appreciated at the right-sided urethra, but I was finally able to locate the bladder lumen by aiming the scope more anteriorly. Once inside the bladder, I could clearly see bladder mucosa. Urine was quite hematuric and some clots were located and evacuated through the cystoscope, probably about 100 mL of clot. The bladder was sequentially filled and emptied to clear of any obvious clot. Saline was used for the whole time during the entire procedure. I did not spend a lot of time trying to locate the UO's as I wanted to just get the catheter in, but sensor wire was placed and adequate amount of wire was placed, curled in the bladder. The scope was backed out, and again the disrupted anastomosis was inspected and this appeared to be completely circumferential disruption. There was quite a wide space between the bladder and the urethra probably at least 3-4 cm or more. The wire was left in place and a 20-Romanian lower brule tip catheter was threaded over the wire without difficulty. This was placed to the hub and the wire was removed and balloon was inflated to 10 mL. There was return of light pink urine. The catheter was then copiously irrigated gently with saline and this irrigated freely. I then did a cystogram which demonstrated correct catheter placement and the bladder filled out nicely; however, there was after cath contrast had been drained some residual contrast as expected in what was previously the prostatic fossa and probably a little bit of contrast even behind the bladder as well, but this was fairly minimal. I again irrigated the catheter with normal saline to ensure this irrigated freely and it did. The catheter was then placed to a drainage bag. The procedure was concluded. He was awoken, extubated and taken to recovery in satisfactory condition. He will be admitted to the floor overnight and watch his urine color. His Xarelto will be held. Catheter can be irrigated p.r.n. for clots. He will certainly need very prolonged catheterization to allow this area to heal and will need referral back to Dr. Navarro to determine when he wants to do a cystogram and catheter removal, but I would anticipate at the very least catheter for a month, if not longer. A 22 modifier should be added to this case due to the increased level of difficulty given the complete disruption of the anastomosis, recent prostatectomy, and complex catheter placement. <ELECTRONICALLY SIGNED> By: Ly Rodgers MD 11/16/18 1102 [id number] Rodgers MD /nt
--- NOTE | 2018-11-16 11:25 | CON ---
[address] [address] CONSULTATION Name: ASYA RUBALCAVA Room: [address] M.R.#: [id number] Admission: 11/10/18 Attend Phys: Humphrey Calvert Discharge: 11/13/18 Date of : 46 Report #: [id number] THIS REPORT FOR: //name// CC: Ahmet Weiss UROLOGY CONSULTATION REASON FOR CONSULTATION: Gross hematuria and urinary retention. HISTORY OF PRESENT ILLNESS: The patient is a 68-year-old male who underwent salvage prostatectomy by Dr. Navarro at on approximately 10/16/18. His catheter was removed approximately a week later. The patient had previously undergone radiation several years ago, but had PSA recurrence. He had been voiding okay with minimal incontinence until today when he developed gross hematuria and difficulty urinating. He was passing several large clots from his penis. He denies any fevers, chills or flank pain. He is on Xarelto for history of DVT and atrial fibrillation. He presented to [facility], where the ER nurse placed a catheter with return of 400 mL of bloody urine per his report. However, this clotted off and would not irrigate, so then this was removed by him and another 24-Hungarian 3-way Castillo catheter was placed, again about 100-200 mL of bloody urine was drained, but it quickly clotted off and when they tried to irrigate it, the patient experienced excruciating pain and it would not irrigate. Apparently, the ER doctor tried to contact [facility] to transfer the patient to the Urology Service there, but the hospital was full and they were not accepting transfers, it was at this time that I was contacted. They did not contact us when the patient came in prior to attempting catheterization of this patient. PAST MEDICAL HISTORY: Includes prostate cancer, atrial fibrillation, DVT. PAST SURGICAL HISTORY: Includes robotic salvage prostatectomy. ALLERGIES: TO CIPRO. HOME MEDICATIONS: Include hydrocodone, Xarelto and Cardizem. SOCIAL HISTORY: The patient denies tobacco or alcohol use. He lives alone. FAMILY HISTORY: Noncontributory. REVIEW OF SYSTEMS: A 12-point review of systems is performed and is negative except as noted above in HPI. PHYSICAL EXAMINATION: [place] [address] CONSULTATION Name: ASYA RUBALCAVA Room: [address] IN [facility].#: [id number] Admission: 11/10/18 Attend Phys: Humphrey Calvert Discharge: 11/13/18 Date of : 46 Report #: [id number] VITAL SIGNS: Temperature is 37.2, pulse 122, respirations 16, blood pressure 164/98, pulse ox 97% on room air and 88.4 kg. GENERAL: He is a well-developed, well-nourished white male, currently in no distress. HEENT: Normocephalic, atraumatic. RESPIRATIONS: Unlabored. HEART: Regular. ABDOMEN: Soft, nondistended with some mild tenderness to palpation in the suprapubic region. His robotic incisions are healing well. GENITOURINARY: He has a normal phallus and testicles. He has a 24-Hungarian 3-way catheter in place with bloody urine in the tubing. BACK: He has no CVA tenderness. EXTREMITIES: He has no swelling or edema. SKIN: Normal, dry. LABORATORY DATA: His white count is 13, hemoglobin 14 and platelets 287. His BMP is normal with the exception of a mildly elevated BUN at 29. His creatinine is 1.2, glucose is 126. Urinalysis showed blood and leukocyte esterase, but was negative for white cells, had 1-9 bacteria. Urine culture was sent. A CT scan was done, noncontrast, of the abdomen and pelvis. I reviewed the images personally. The report is not back yet, but on my review, he has a distended bladder with small amount of possible clot, but it looks like the catheter is blown up between the bladder and the urethra and does not appear to be in good placement. The tip of the catheter appears like it almost might be outside of the bladder. I did not appreciate a whole lot of free fluid. ASSESSMENT AND PLAN: 1. Gross hematuria with clot retention. 2. Recent salvage prostatectomy for prostate cancer. 3. Malpositioned Castillo catheter. Given the current situation, I think it would be best rather than to waste any more time attempting catheter placement at the bedside given the complexity of the situation, I feel he needs a cystoscopy under anesthesia with hopefully Castillo catheter placement over a wire if I am hopefully able to locate the bladder opening and can also proceed with clot evacuation if needed. We did discuss this is a complex situation and certainly not a desirable situation given his most recent surgery and the fact that he is on Xarelto. He understands he is at higher risk for complications including infection, bleeding, chance that I may not be able to place the catheter, he may require suprapubic tube. Trying to do any kind of open or laparoscopic placement of the catheter if cystoscopic placement is not successful would be fraught with complications and may prove to be not even possible. He understands the serious nature of his situation. He voiced understanding of everything and wishes to proceed. If catheter is able to be placed, he will need prolonged catheterization and follow up with Dr. Navarro for cystogram prior to catheter [facility] [address] [place] [address] CONSULTATION Name: GINIASYA GAL Room: [address] M.R.#: [id number] Admission: 11/10/18 Attend Phys: Humphrey Calvert Discharge: 11/13/18 Date of : 46 Report #: [id number] removal. The patient also understands there is a chance he may have worsening incontinence after all this is healed and also may have difficulty healing due to prior radiation therapy. <ELECTRONICALLY SIGNED> By: Ly Rodgers MD 11/16/18 1125 [id number] 0210Ly Rodgers MD /nt
== END 2018-11-13 12:57 | disposition home health service (06) | DRG 699 ==
LOC: M.ERS 20:52 → M.TBA-ER 11-10 03:16 → M.ORTHSURG 11-10 03:16
PROVIDERS: Internal Medicine; Nurse Practitioner Psychiatric/Mental Health; Urology; ADMIT Internal Medicine
PROC: 0TCB8ZZ Extirpation of Matter from Bladder, Via Natural or Artificial Opening Endoscopic (ICD-10-PCS; principal; 2018-11-10)
PROC: 0T9B80Z Drainage of Bladder with Drainage Device, Via Natural or Artificial Opening Endoscopic (ICD-10-PCS; principal; 2018-11-10)
DX: T83.028A Displacement of other urinary catheter, initial encounter (principal); N39.0 Urinary tract infection, site not specified; R31.0 Gross hematuria; I48.91 Unspecified atrial fibrillation; Z85.46 Personal history of malignant neoplasm of prostate; Y83.8 Other surgical procedures as the cause of abnormal reaction of the patient, or of later complication, without mention of misadventure at the time of the procedure; N32.0 Bladder-neck obstruction; Z88.1 Allergy status to other antibiotic agents; Y92.89 Other specified places as the place of occurrence of the external cause; Z86.718 Personal history of other venous thrombosis and embolism; Z79.01 Long term (current) use of anticoagulants